=== PATIENT | female | born 1950 | race Two or more races ===

== ENCOUNTER 2017-10-27 10:05 | Observation (INO) | payer MEDICAID ==
[2017-10-27 10:55] LABS: ADD MAN DIFF? NO
[2017-10-27] MEDS: NITROGLYCERIN 2% 1 GM OINT PKT TD (10:55)
[2017-10-27] MEDS: ASPIRIN 81 MG TAB PO (10:56)
[2017-10-27 11:01] LABS: WHITE BLOOD COUNT 6.3 10^3/ul (4.8-10.8)
[2017-10-27 11:01] LABS: BASOPHILS % 0.6 % (0.0-2.0); EOSINOPHILS % 0.6 % (0.0-7.0); HEMATOCRIT 38.1 % (37.0-47.0); HEMOGLOBIN 13.2 g/dl (12.0-16.0); LYMPHOCYTES % 31.1 % (15.0-51.0); MEAN CORPUSCULAR HEMOGLOBIN 29.7 pg (29.0-33.0); MEAN CORPUSCULAR HGB CONC 34.6 g/dl (32.0-37.0); MEAN CORPUSCULAR VOLUME 85.6 fl (82.0-101.0); MEAN PLATELET VOLUME 11.5 fl (7.4-10.4); MONOCYTE # 0.4 10^3/ul (0.3-0.9); MONOCYTES % 5.7 % (0.0-11.0); NEUTROPHIL # 3.9 10^3/ul (1.6-7.5); NEUTROPHILS % 61.7 % (39.0-77.0); PLATELET COUNT 178 10^3/UL (140-415); RED BLOOD COUNT 4.45 10^6/ul (4.20-5.40); RED CELL DISTRIBUTION WIDTH 11.9 % (11.5-14.5)
[2017-10-27] MEDS: NITROGLYCERIN (SL) 0.4 MG TAB SL (11:19)
[2017-10-27 11:31] LABS: ANION GAP 9 (8-16); BLOOD UREA NITROGEN 15 mg/dl (7-20); CALCIUM 9.1 mg/dl (8.4-10.2); CARBON DIOXIDE 27 mmol/L (21-31); CHLORIDE 103 mmol/L (97-110); CREATININE 0.27 mg/dl (0.44-1.00); POTASSIUM 4.1 mmol/L (3.5-5.1); SODIUM 135 mmol/L (135-144)
[2017-10-27 11:41] LABS: TROPONIN-I < 0.012 ng/ml (0.000-0.120)
[2017-10-27 11:43] LABS: GLUCOSE 421 mg/dl (70-220)
[2017-10-27] MEDS ORDERED: ONDANSETRON 4 MG INJ IV ×2 (12:30→13:00)
[2017-10-27] MEDS: INSULIN LISPRO 100 UNIT/ML VIAL SC (12:38)
[2017-10-27] MEDS ORDERED: NACL 0.9% 3 ML SYG IV (13:00)
[2017-10-27] MEDS ORDERED: DOCUSATE SODIUM 100 MG CAP PO (13:00)
[2017-10-27 13:20] LABS: HDL CHOLESTEROL 43 mg/dl (35-98); LDL CHOLESTEROL,CALCULATED 87 mg/dl; TRIGLYCERIDES 231 mg/dl (0-149)
[2017-10-27 13:20] LABS: CHOLESTEROL 176 mg/dl (100-200)
[2017-10-27] MEDS ORDERED: DEXTROSE 50% 50 ML SYRINGE IV ×2 (14:00)
[2017-10-27] MEDS ORDERED: GLUCOSE GEL 15 GRAM TUBE PO ×2 (14:00)
[2017-10-27] MEDS ORDERED: GLUCOSE GEL 15 GRAM TUBE BUCCAL (14:00)
[2017-10-27] MEDS ORDERED: GLUCAGON 1 MG INJ IM (14:00)
[2017-10-27] MEDS ORDERED: IBUPROFEN 200 MG TAB PO (14:30)
[2017-10-27 16:45] LABS: CREATINE KINASE 28 IU/L (23-200)
[2017-10-27 16:58] LABS: CK INDEX 1.8; CK-MB 0.49 ng/ml (0.0-2.4); TROPONIN-I < 0.012 ng/ml (0.000-0.120)
[2017-10-27] MEDS: ISOSORBIDE MONONITRATE(SR)30 MG TAB PO (17:55)
[2017-10-27] MEDS: INSULIN ASPART [NOVOLOG] 3 ML PEN SC ×4 (18:00→23:04)
[2017-10-27] MEDS: ACETAMINOPHEN 325 MG TAB PO ×2 (18:03→22:54)
[2017-10-27] MEDS: FAMOTIDINE 20 MG TAB PO (22:21)
[2017-10-27] MEDS: INSULIN GLARGINE [LANTus] (100 UNITS/ML) SYG SC (22:26)
[2017-10-27 23:24] LABS: CREATINE KINASE 27 IU/L (23-200)
[2017-10-27 23:33] LABS: CK INDEX 1.3; CK-MB 0.35 ng/ml (0.0-2.4)
[2017-10-27 23:38] LABS: TROPONIN-I < 0.012 ng/ml (0.000-0.120)
[2017-10-28] MEDS: ACCU-CHEK XX (02:30)
[2017-10-28] MEDS: INSULIN ASPART [NOVOLOG] 3 ML PEN SC ×7 (04:53→17:36)
[2017-10-28] MEDS: NITROGLYCERIN (SL) 0.4 MG TAB SL (06:45)
[2017-10-28] MEDS: FAMOTIDINE 20 MG TAB PO (08:07)
[2017-10-28] MEDS: ASPIRIN 81 MG TAB PO (08:07)
[2017-10-28 09:21] LABS: ADD MAN DIFF? NO
[2017-10-28 09:36] LABS: BASOPHILS % 0.2 % (0.0-2.0); EOSINOPHILS # 0.1 10^3/ul (0.0-0.5); EOSINOPHILS % 0.8 % (0.0-7.0); HEMATOCRIT 37.8 % (37.0-47.0); HEMOGLOBIN 12.8 g/dl (12.0-16.0); LYMPHOCYTES # 1.7 10^3/ul (0.8-2.9); LYMPHOCYTES % 20.1 % (15.0-51.0); MEAN CORPUSCULAR HEMOGLOBIN 29.7 pg (29.0-33.0); MEAN CORPUSCULAR HGB CONC 33.9 g/dl (32.0-37.0); MEAN CORPUSCULAR VOLUME 87.7 fl (82.0-101.0); MEAN PLATELET VOLUME 12.2 fl (7.4-10.4); MONOCYTE # 0.5 10^3/ul (0.3-0.9); MONOCYTES % 6.1 % (0.0-11.0); NEUTROPHIL # 6.2 10^3/ul (1.6-7.5); NEUTROPHILS % 72.6 % (39.0-77.0); PLATELET COUNT 178 10^3/UL (140-415); RED BLOOD COUNT 4.31 10^6/ul (4.20-5.40); RED CELL DISTRIBUTION WIDTH 11.9 % (11.5-14.5)
[2017-10-28 09:36] LABS: WHITE BLOOD COUNT 8.6 10^3/ul (4.8-10.8)
[2017-10-28] MEDS: REGADENOSON 0.4 MG/5 ML SYG (09:37)
[2017-10-28 10:05] LABS: TROPONIN-I < 0.012 ng/ml (0.000-0.120)
[2017-10-28 11:04] LABS: ALANINE AMINOTRANSFERASE 24 IU/L (13-69); ALBUMIN 3.4 g/dl (3.3-4.9); ALBUMIN/GLOBULIN RATIO 1.13; ALKALINE PHOSPHATASE 155 IU/L (42-121); ANION GAP 10 (8-16); ASPARTATE AMINO TRANSFERASE 21 IU/L (15-46); BILIRUBIN,INDIRECT 0.4 mg/dl (0-1.1); BILIRUBIN,TOTAL 0.4 mg/dl (0.2-1.3); BLOOD UREA NITROGEN 18 mg/dl (7-20); CALCIUM 8.7 mg/dl (8.4-10.2); CARBON DIOXIDE 27 mmol/L (21-31); CHLORIDE 103 mmol/L (97-110); CREATININE 0.26 mg/dl (0.44-1.00); GLUCOSE 205 mg/dl (70-220); MAGNESIUM 1.7 mg/dl (1.7-2.5); PHOSPHORUS 3.4 mg/dl (2.5-4.9); POTASSIUM 3.8 mmol/L (3.5-5.1); SODIUM 136 mmol/L (135-144); TOTAL PROTEIN 6.4 g/dl (6.1-8.1)
== END 2017-10-28 18:03 | disposition home or self-care (01) ==
LOC: E/R 10:05 → TEL 12:13
DX: R07.89 Other chest pain (principal); E11.65 Type 2 diabetes mellitus with hyperglycemia; I10 Essential (primary) hypertension; R94.31 Abnormal electrocardiogram [ECG] [EKG]
CPT/HCPCS: 36415; 71045; 78452; 80048; 80053; 80061; 82306; 82550; 82553; 82607; 82652; 82962; 83036; 83735; 84100; 84443; 84484; 85025; 93005; 93017; 93306; 99285-25; G0378